=== PATIENT | male | born 1990 | race Caucasian/White ===

== ENCOUNTER 2016-09-20 22:14 | Emergency (ER) | payer SELFPAY ==
[~2016-09-20] VITALS: Ht 185.4 cm; Wt 56.7 kg
[2016-09-20 22:19] VITALS: BP 115/82; PULSE 96; RESP 18; TEMP 97.8; O2SAT 98
[2016-09-20] MEDS ORDERED: CEPH500C PO (22:34)
--- NOTE | 2016-09-20 22:41 | PD ---
HPI Chief Complaint: Injury Time Seen by Provider: 22:34 Travel History International Travel<30 days: No Contact w/Intl Traveler<30days: No Traveled to known affect area: No History of Present Illness HPI Patient is an 25-year-old otherwise healthy male presenting with crush injury to the left hand. Approximately 5 hours prior to exam the patient was attempting to put a trailer hitch onto a truck when he accidentally caught the metacarpals and MCP of the third through fifth digits between the hitch and the bumper of the truck. He has some minor lacerations as he calls them with minimal bleeding. He cleansed the wounds and applied "liquid bandage ". Pain is minimal. He denies any loss of range of motion, weakness or paresthesia. Denies any pain in the wrist. He is right-hand dominant. Last tetanus vaccine 3 years prior. Endorses tobacco use and occasional ethanol use. He states he drank 4 beers and 4 shots since this happened in an attempt to help with comfort. Denies illicit drug use. He is accompanied by his fiance today who will be driving him home. [facility] Past Medical History Asthma: Yes Diminished Hearing: No Musculoskeletal: Yes (CHRONIC BACK PAIN S/P FALL 2009) Respiratory: Yes (ASTHMA) Social History Alcohol Use: Yes (occasionally) Tobacco Use: Yes (1/2 ppd) Substance Use: Yes (THC) Allergies-Medications (Allergen,Severity, Reaction): Coded Allergies: No Known Allergies (Verified , 09/20/16) Reported Meds & Prescriptions Reported Meds & Active Scripts Active Diclofenac Sodium DR (Diclofenac Sodium) 50 Mg Tabdr 50 Mg PO BID Cephalexin 500 Mg Cap 500 Mg PO Q6H Review of Systems Except as stated in HPI: all other systems reviewed are Neg Physical Exam Narrative GENERAL: Well-developed and well-nourished adult male in no acute distress. SKIN: Warm and dry. Good turgor without tenting. Many tattoos. HEAD: Normocephalic and atraumatic. EYES: PERRL bilaterally, 5mm. EOMI bilaterally. No injection or icterus present. No proptosis. Lids without edema or erythema. CARDIOVASCULAR: Regular rate and rhythm without murmurs, rubs, clicks or gallops. Radial pulses 2+ bilaterally. Capillary refill less than 2 seconds at the tip of all fingers of left hand. RESPIRATORY: Clear to auscultation bilaterally with symmetrical rise and fall, no distress or use of accessory muscles. MUSCULOSKELETAL: Left hand has 3 small superficial lacerations on the radial aspect of the proximal digit, also centimeter. Hemostasis achieved. No bone or tendon is visible. Only the third digit would require repair as the others are less than 1 mm deep. Patient has full range of motion in the digits and wrist. Some pain with palpation of the distal third and fifth metacarpals and MCP joints. The pain to palpation of the digits themselves other than at the proximal phalanges of the third through fifth digits. No edema, discoloration or deformities. No gait disturbances. Patient freely moving all four extremities spontaneously. Extremities without clubbing, cyanosis, or edema. No obvious deformities. NEUROLOGIC: CN II-XII grossly intact. Awake and alert. Strength 5/5 bilateral wrist flexion, wrist extension. Sensation intact to light touch to the distal, radial and ulnar aspects of all fingers of the left hand. Normal speech. PSYCHIATRIC: Appropriate mood and affect; insight and judgment normal. Data Data Last Documented VS Vital Signs Date Time Temp Pulse Resp B/P Pulse Ox O2 Delivery O2 Flow Rate FiO2 09/20/16 22:19 97.8 96 18 115/82 98 Orders Hand, Complete ([id number]) (09/20/16 22:32) Ice/Cold Pack (09/20/16 22:32) Ketorolac Inj (Toradol Inj) (09/20/16 22:45) Ibuprofen (Motrin) (09/20/16 23:00) MDM Medical Decision Making Medical Screen Exam Complete: Yes Emergency Medical Condition: Yes Differential Diagnosis Finger/hand crush injury versus laceration versus fracture versus dislocation Narrative Course Patient is a 25-year-old otherwise healthy male presenting with crush injury to the left hand approximate 5 hours prior to exam. There are 3 subcentimeter lacerations are shallow, 2 are less than 1 mm deep and do not require repair on the third and fifth digits. Fourth digit is a little deeper and should be sutured. No bone or tendon is visible. Patient is neurovascularly intact has normal range of motion. He refuses sutures stating that under no circumstances does he want them to be closed. I offered multiple times and he insists that he does not any needles under any circumstances including suture needle. He is capable of making this decision and I explained that this can infection is higher and this could cause long-term consequences and he still desires to have it not sutured. I do believe that should be closed and some format and although sutures would be optimal and she will not let me it did apply Steri- Strips and Dermabond which he did allow me to apply Steri-Strips after wounds were cleansed. See attached procedure narrative. X-ray shows [-] Procedures Procedure Narrative LACERATION LOCATION: Base of the fourth digit exam LENGTH: 8 mm SHAPE: Linear NUMBER OF STITCHES/PAULINE: 2 Steri-Strips in 2 layers of Dermabond REPAIR: The area of the laceration was prepped with Betadine and sterilely draped. The wound was copiously irrigated and explored without evidence of foreign body, tendon injury or neurovascular injury. The wound was closed using Steri-Strip and Dermabond. This was a single layer repair. A sterile dressing was applied. The patient was advised to keep the dressing clean and dry. Patient tolerated the procedure well. Diagnosis Primary Impression: Finger laceration Qualified Code: S61.219A - Finger laceration, initial encounter Additional Impression: Crush injury Patient Instructions: Finger Laceration (ED), General Instructions Additional Instructions: Keep bandage on for 24 hours then change daily When changing bandage wash area with soap and water Avoid swimming or submerging wound in any water(bath, ordaz, pool, ocean, etc) Take Tylenol or ibuprofen for pain Do not take off the glue or Steri-Strips, they will fall off when ready Follow-up with PCP in 2-3 days Return to the ED for any acute worsening of symptoms including swelling, warmth , spreading redness, pustular drainage, fever Med/Other Pt SpecificInfo: Prescription(s) given Scripts Diclofenac Sodium DR 50 Mg Tabdr50 Mg PO BID #14 TAB Prov:Kenneth Coughlin MD 09/20/16 Cephalexin 500 Mg [id number] Mg PO Q6H #28 CAP Ref 0 Prov:Kenneth Coughlin MD 09/20/16 Disposition: 01 DISCHARGE HOME Condition: Stable GaryLuis Miguel HARDY Sep 20, 2016 22:40
[2016-09-20] MEDS ORDERED: KETOROLAC TROMETHAMINE 60 MG/2 ML (IM) VIAL IM ONE (22:45)
[2016-09-20] MEDS ORDERED: DICL50TA3 PO (22:55)
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
[2016-09-20] MEDS ORDERED: IBUPROFEN 800 MG TAB PO ONE (23:00)
== END 2016-09-20 23:54 | disposition home or self-care (01) ==
LOC: PHEFT 22:14
DX: S61.215A Laceration without foreign body of left ring finger without damage to nail, initial encounter (principal); J45.909 Unspecified asthma, uncomplicated; F17.210 Nicotine dependence, cigarettes, uncomplicated
CPT/HCPCS: 12001; 73130

== ENCOUNTER 2017-03-08 12:51 | Emergency (ER) | payer SELFPAY ==
[~2017-03-08] VITALS: Ht 185.4 cm; Wt 55.0 kg
[~2017-03-08 12:51] MED LIST: CEPH500C PO; DICL50TA3 PO
[2017-03-08 12:52] VITALS: BP 126/92; PULSE 103; RESP 15; TEMP 97.9; O2SAT 99
[2017-03-08] MEDS ORDERED: ROBA500T PO (13:21)
--- NOTE | 2017-03-08 13:22 | PD ---
HPI Chief Complaint: Back/ Neck Pain or Injury Time Seen by Provider: 13:00 Travel History International Travel<30 days: No Contact w/Intl Traveler<30days: No Traveled to known affect area: No History of Present Illness HPI 26-year-old male presents to emergency Department with chief complaint of low back pain. Symptom onset yesterday. 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 He reports the pain as "spasming", constant, nonradiating, worse with movement, relieved with rest, severity 6 out of 10. He reports similar symptoms with previous back strains. He denies fever, chills, incontinence, numbness/weakness/tingling or lower extremities. [facility] Past Medical History Narrative Medical Significant for asthma Asthma: Yes Diminished Hearing: No Musculoskeletal: Yes (Chronic back pain S/P fall ) Neurologic: Yes (TEMPORARY LEFT BODY PARALYSIS 2009) Respiratory: Yes (ASTHMA) Tetanus Vaccination: < 5 Years Influenza Vaccination: No ?: Not Social History Alcohol Use: No Tobacco Use: Yes (09/09 PPD) Substance Use: Yes (Marijuana occ.) Allergies-Medications (Allergen,Severity, Reaction): Coded Allergies: No Known Allergies (Verified , 03/08/17) Reported Meds & Prescriptions Reported Meds & Active Scripts Active Robaxin (Methocarbamol) 500 Mg Tab 500 Mg PO TID PRN Review of Systems General / Constitutional: No: Fever Eyes: No: Visual changes HENT: No: Headaches Cardiovascular: No: Chest Pain or Discomfort Respiratory: No: Shortness of Breath Gastrointestinal: No: Abdominal Pain Genitourinary: No: Dysuria Musculoskeletal: Positive: Other (back pain) Physical Exam Narrative GENERAL: Alert, well-appearing male no acute distress SKIN: Focused skin assessment warm/dry. HEAD: Atraumatic. Normocephalic. NECK: Trachea midline. No JVD. No cervical spine tenderness CARDIOVASCULAR: Regular rate and rhythm. No murmur appreciated. RESPIRATORY: No accessory muscle use. Clear to auscultation. Breath sounds equal bilaterally. GASTROINTESTINAL: Abdomen soft, non-tender, nondistended. Hepatic and splenic margins not palpable. MUSCULOSKELETAL: No obvious deformities. No clubbing. No cyanosis. No edema. Normal sensation in extremities. BACK: No CVA tenderness. Generalized point tenderness of the lumbar paraspinous muscles. No point tenderness within the spine. NEUROLOGICAL: Awake and alert. No obvious cranial nerve deficits. Motor grossly within normal limits. Normal speech. 5 out of 5 strength in extremities. Patient ambulating without difficulty. PSYCHIATRIC: Appropriate mood and affect; insight and judgment normal. Data Data Last Documented VS Vital Signs Date Time Temp Pulse Resp B/P Pulse Ox O2 Delivery O2 Flow Rate FiO2 03/08/17 12:52 97.9 103 15 126/92 99 MDM Medical Decision Making Medical Screen Exam Complete: Yes Emergency Medical Condition: Yes Differential Diagnosis Lumbar strain, herniated disc, very unlikely compression fracture Narrative Course 26-year-old male presents emergency department for low back pain times one day. Patient reports pain is similar to previous back pain. 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 On exam he's got mild to moderate tenderness in the lumbar paraspinous muscle regions. Patient will be treated for lumbar strain. Return precautions discussed. Patient agrees to plan Diagnosis Primary Impression: Lumbar strain Qualified Code: S39.012A - Lumbar strain, initial encounter Referrals: Primary Care Physician Departure Forms: Tests/Procedures, Work Release Enter return to work date: Mar 11, 2017 Additional Instructions: Take [id number]-dcheohg Motrin [id number] milligrams every 6 hours as needed for pain. Take the muscle relaxer as needed for muscle spasms. Apply heat and/or ice to the low back. Follow-up the primary care doctor. Return to emergency department if he developed new or worsening symptoms. Scripts Methocarbamol (Robaxin)500 Mg Fyn433 Mg PO TID PRN (MUSCLE SPASM) #12 TAB Prov:Blanca Viera 03/08/17 Disposition: 01 DISCHARGE HOME Condition: Stable Blanca Virea Mar 08, 2017 13:22
== END 2017-03-08 13:32 | disposition home or self-care (01) ==
LOC: PHEFT 12:51
DX: S39.012A Strain of muscle, fascia and tendon of lower back, initial encounter (principal); F17.210 Nicotine dependence, cigarettes, uncomplicated; X50.3XXA Overexertion from repetitive movements, initial encounter; Y93.H2 Activity, gardening and landscaping; Y92.89 Other specified places as the place of occurrence of the external cause; Y99.9 Unspecified external cause status
CPT/HCPCS: 99283

== ENCOUNTER 2017-06-20 21:20 | Emergency (ER) | payer SELFPAY ==
[~2017-06-20 21:20] MED LIST changes: -CEPH500C PO; -DICL50TA3 PO; +ROBA500T PO
[2017-06-20 21:23] VITALS: BP 108/64; PULSE 79; RESP 20; TEMP 98.5; O2SAT 100
[2017-06-20] MEDS ORDERED: CEPH-459 PO (22:43)
--- NOTE | 2017-06-20 22:44 | PD ---
HPI . Left hand laceration Chief Complaint: Laceration/Skin Injury Time Seen by Provider: 21:48 Travel History International Travel<30 days: No Contact w/Intl Traveler<30days: No Traveled to known affect area: No History of Present Illness HPI 26-year-old male presents to emergency room for evaluation of left hand laceration that he sustained earlier today while chopping vegetables. It is a 3 cm laceration noted to the left proximal aspect of the thumb. Patient is up- to-date on his tetanus. Patient denies any fevers, chills, malaise, paresthesias. Capillary refill is within normal limits. The left thumb is neurovascularly intact. Patient denies any major medical history. Patient is not allergic to anything. [facility] Past Medical History Asthma: Yes Diminished Hearing: No Musculoskeletal: Yes (Chronic back pain S/P fall ) Neurologic: Yes (TEMPORARY LEFT BODY PARALYSIS 2009) Respiratory: Yes (ASTHMA) Social History Alcohol Use: No Tobacco Use: Yes (/2 PPD) Substance Use: Yes (Marijuana occ.) Allergies-Medications (Allergen,Severity, Reaction): Coded Allergies: No Known Allergies (Verified , 06/20/17) Reported Meds & Prescriptions Reported Meds & Active Scripts Active Keflex (Cephalexin) 250 Mg Cap 250 Mg PO Q6H 5 Days Review of Systems Except as stated in HPI: all other systems reviewed are Neg Physical Exam Narrative GENERAL: Well-nourished, well-developed 26-year-old male patient in no acute distress. SKIN: 3 cm laceration to the lateral aspect of the left thumb in the proximal region. HEAD: Normocephalic. Atraumatic EYES: No scleral icterus. No injection or drainage. NECK: Supple, trachea midline. No JVD or lymphadenopathy. CARDIOVASCULAR: Regular rate and rhythm without murmurs, gallops, or rubs. RESPIRATORY: Breath sounds equal bilaterally. No accessory muscle use. GASTROINTESTINAL: Abdomen soft, non-tender, nondistended. MUSCULOSKELETAL: No cyanosis, or edema. BACK: Nontender without obvious deformity. No CVA tenderness. Data Data Last Documented VS Vital Signs Date Time Temp Pulse Resp B/P (MAP) Pulse Ox O2 Delivery O2 Flow Rate FiO2 06/20/17 21:23 98.5 79 20 108/64 (79) 100 MDM Medical Decision Making Medical Screen Exam Complete: Yes Emergency Medical Condition: Yes Differential Diagnosis Difficult diagnoses include but not limited to laceration, cellulitis, foreign body, nerve damage, tendon damage Narrative Course 26-year-old male patient presents emergency department for evaluation of laceration he sustained to the left thumb. The laceration is on the lateral proximal aspect of the thumb. Patient able to move thumb appropriately. Capillary refill is within normal limits. The left thumb is neurovascularly intact. She denies any paresthesias. Patient denies any fevers, chills, malaise. The laceration was sustained earlier this evening. Patient stated he would not of come in to the emergency department however he needs a work note for tomorrow. Patient refuses to get sutures. Patient states we can close it with a Band-Aid or we can glue it but he will not get sutures. He is up-to- date on his tetanus shot. Patient will soak his left hand and half normal saline and half Betadine solution to ensure a thorough clean. The laceration will be repaired using Dermabond. The patient will be put on prophylactic antibiotics due to the hands being high risk area. Patient will be discharged home with Keflex. Diagnosis Primary Impression: Finger laceration Qualified Codes: S61.012A - Laceration without foreign body of left thumb without damage to nail, initial encounter Patient Instructions: Finger Laceration (ED), General Instructions Departure Forms: Tests/Procedures, Work Release Enter return to work date: Jun 25, 2017 Additional Instructions: Please return to emergency department if your symptoms return or worsen. Follow up with your primary care provider. Take medications as prescribed. Keep the wound clean and dry. Med/Other Pt SpecificInfo: Prescription(s) given Scripts Cephalexin (Keflex) 250 Mg Cap 250 MG PO Q6H for Infection for 5 Days, #20 CAP 0 Refills Prov: LissethMarquitaad TRACEY 06/20/17 Disposition: 01 DISCHARGE HOME Condition: Stable Lisseth,Marquita TRACEY Jun 20, 2017 22:44
== END 2017-06-20 23:10 | disposition home or self-care (01) ==
LOC: PHED 21:20 → PHEFT 23:10
DX: S61.012A Laceration without foreign body of left thumb without damage to nail, initial encounter (principal); W26.0XXA Contact with knife, initial encounter; Y93.G3 Activity, cooking and baking; J45.909 Unspecified asthma, uncomplicated; G89.29 Other chronic pain; Z72.0 Tobacco use
CPT/HCPCS: 12002

== ENCOUNTER 2017-06-24 21:04 | Emergency (ER) | payer SELFPAY ==
[~2017-06-24] VITALS: Ht 188 cm; Wt 55.4 kg
[~2017-06-24 21:04] MED LIST changes: +CEPH-459 PO; -ROBA500T PO
[2017-06-24 21:09] VITALS: BP 116/74; PULSE 72; RESP 16; TEMP 97.2; O2SAT 98
--- NOTE | 2017-06-24 21:23 | PD ---
HPI Chief Complaint: wound recheck Time Seen by Provider: 21:17 Travel History International Travel<30 days: No Contact w/Intl Traveler<30days: No History of Present Illness HPI Patient comes back to the emergency department complaining of recheck of left thumb. Patient reports his employer will not let him go back to work secondary to the laceration still not being completely healed without any doctor's note. Patient states taking antibiotics as prescribed. He states the Dermabond came off. Patient reports been keeping it dry and clean as possible using soap and water. Denies any new complaints. Denies anything making it better or worse. Denies any pain with this. 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 PFSH Past Medical History Asthma: Yes Diminished Hearing: No Musculoskeletal: Yes (Chronic back pain S/P fall ) Neurologic: Yes (TEMPORARY LEFT BODY PARALYSIS 2009) Respiratory: Yes (ASTHMA) Social History Alcohol Use: No Tobacco Use: Yes (1/2 PPD) Substance Use: Yes (Marijuana occ.) Allergies-Medications (Allergen,Severity, Reaction): Coded Allergies: No Known Allergies (Verified , 06/24/17) Reported Meds & Prescriptions Reported Meds & Active Scripts Active Keflex (Cephalexin) 250 Mg Cap 250 Mg PO Q6H 5 Days Review of Systems Except as stated in HPI: all other systems reviewed are Neg Physical Exam Narrative GENERAL: Well-developed, well nourished, in no acute distress, and non-ill appearing. SKIN: Well-healing wound noted over the left thumb. There is no crepitus, erythematous, drainage, or other signs of infection. Patient has full range of motion with flexion, extension, abduction, adduction, opposition of the thumb. Is neurovascularly intact distally. HEAD: Atraumatic. Normocephalic. EYES: Pupils equal and round. EOMI. No scleral icterus. No injection or drainage. ENT: No nasal bleeding or discharge. Mucous membranes pink and moist. NECK: Trachea midline. Supple. No nuclear rigidity. CARDIOVASCULAR: Capillary refill less than 2 seconds. RESPIRATORY: No accessory muscle use. No respiratory distress. MUSCULOSKELETAL: No obvious deformities. No clubbing. No cyanosis. No edema. Full range of motion. NEUROLOGICAL: Awake and alert. No obvious cranial nerve deficits. Motor grossly within normal limits. Normal speech. PSYCHIATRIC: Appropriate mood and affect; insight and judgment normal. Data Data Last Documented VS Vital Signs Date Time Temp Pulse Resp B/P (MAP) Pulse Ox O2 Delivery O2 Flow Rate FiO2 06/24/17 21:32 06/24/17 21:09 97.2 72 16 98 Orders Orders Ed Discharge Order (06/24/17 21:23) MDM Medical Decision Making Medical Screen Exam Complete: Yes Emergency Medical Condition: No Differential Diagnosis Wound infection, wound recheck, other Narrative Course Patient in no obvious distress upon re-evaluation. Patient was instructed to follow up with primary care physician and/or hand surgeon this week for reevaluation. Keep wound dry and clean as possible using soap and water. Use Neosporin to promote healing. Do not soak or submerge wound. Any questions/ concerns in reference to patient diagnosis/condition discussed and clarified prior to patient's discharge. Instructed patient to return to ED immediately, if symptoms return/worsen. Patient showed understanding of above instructions. Further instructions and recommendations were detailed in discharge paperwork. Patient ambulated without difficulty out of ED at discharge. Diagnosis Primary Impression: Encounter for wound re-check Referrals: [facility] Patient Instructions: Acute Wounds (ED), Finger Laceration (ED) Departure Forms: Work Release Enter return to work date: Jun 26, 2017 Special Instructions: Do not soak or submerge wound. 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 Additional Instructions: Follow-up with your primary care physician and/or hand surgeon this week for reevaluation. Keep wound dry and clean as possible using soap and water. Use Neosporin to promote healing. Do not soak or submerge wound. Return to the emergency department if symptoms get worse. Disposition: 01 DISCHARGE HOME Condition: Stable Edil Kline Jun 24, 2017 21:23
== END 2017-06-24 21:35 | disposition home or self-care (01) ==
LOC: PHEFT 21:04
DX: Z48.00 Encounter for change or removal of nonsurgical wound dressing (principal); J45.909 Unspecified asthma, uncomplicated; F17.200 Nicotine dependence, unspecified, uncomplicated
CPT/HCPCS: 99281

== ENCOUNTER 2017-08-16 23:26 | Emergency (ER) | payer SELFPAY ==
[~2017-08-16] VITALS: Ht 188 cm; Wt 57.0 kg
[2017-08-16 23:30] VITALS: BP 121/75; PULSE 64; RESP 22; TEMP 97.7; O2SAT 100
--- NOTE | 2017-08-17 00:37 | PD ---
HPI Chief Complaint: ENT Complaint Time Seen by Provider: 00:34 Travel History International Travel<30 days: No Contact w/Intl Traveler<30days: No Traveled to known affect area: No History of Present Illness HPI The patient is a 26-year-old male that complains of a sore throat and cough productive of green sputum for 3 days. He has not had any fever. He works with food. He has not short of breath. He can feel occasional wheezes when he breathes deeply. He smokes one half pack a day. His sons have asthma and he has been using their nebulizer treatments with some relief at home. [facility] Past Medical History Asthma: Yes Diminished Hearing: No Musculoskeletal: Yes (Chronic back pain S/P fall ) Neurologic: Yes (TEMPORARY LEFT BODY PARALYSIS 2009) Respiratory: Yes (ASTHMA) ?: Not Social History Alcohol Use: No Tobacco Use: Yes (09/09 PPD) Substance Use: Yes (Marijuana occ.) Allergies-Medications (Allergen,Severity, Reaction): Coded Allergies: No Known Allergies (Verified , 06/24/17) Reported Meds & Prescriptions Reported Meds & Active Scripts Active Keflex (Cephalexin) 250 Mg Cap 250 Mg PO Q6H 5 Days Review of Systems Except as stated in HPI: all other systems reviewed are Neg Physical Exam Narrative GENERAL: The patient is alert, oriented 3 in no respiratory distress. His vital signs show respirations of 22 but otherwise normal. When I see the patient is respirations are 18. SKIN: Focused skin assessment warm/dry. No skin rash is seen. HEAD: Atraumatic. Normocephalic. EYES: Pupils equal and round. No scleral icterus. No injection or drainage. ENT: No nasal bleeding or discharge. Mucous membranes pink and moist. The throat is slightly red without exudate or abscess. NECK: Trachea midline. No JVD. CARDIOVASCULAR: Regular rate and rhythm. No murmur appreciated. RESPIRATORY: No accessory muscle use. Bilateral wheezes with a few rhonchi are heard. Breath sounds equal bilaterally. GASTROINTESTINAL: Abdomen soft, non-tender, nondistended. Hepatic and splenic margins not palpable. MUSCULOSKELETAL: No obvious deformities. No clubbing. No cyanosis. No edema. NEUROLOGICAL: Awake and alert. No obvious cranial nerve deficits. Motor grossly within normal limits. Normal speech. PSYCHIATRIC: Appropriate mood and affect; insight and judgment normal. Data Data Last Documented VS Vital Signs Date Time Temp Pulse Resp B/P (MAP) Pulse Ox O2 Delivery O2 Flow Rate FiO2 08/16/17 23:40 18 08/16/17 23:30 97.7 64 121/75 (90) 100 Orders Orders Group A Rapid Strep Screen (08/17/17 00:06) Influenzae A/B Antigen (08/17/17 00:06) Chest, Pa & Lat (08/17/17 00:34) Strep Culture (Group A) (08/17/17 00:20) Albuterol-Ipratropium Neb (Duoneb Neb) (08/17/17 00:45) MDM Medical Decision Making Medical Screen Exam Complete: Yes Emergency Medical Condition: Yes Medical Record Reviewed: Yes Interpretation(s) The strep screen is negative for group A strep antigen. The influenza A/B antigen is negative for flu a and flu B antigen. Differential Diagnosis Bronchitis-viral, bronchitis-bacterial, pneumonia, bronchopneumonia Narrative Course The patient got only questionable relief with the DuoNeb treatments. He got the same relief with the DuoNeb said he got with his children's nebulizer at home. The chest x-ray is normal and this may be viral versus bacterial bronchitis. The patient is a smoker and may benefit with Zithromax. Diagnosis Primary Impression: Bronchitis Additional Instructions: The antibiotic is one tablet daily for 5 days. It stays your system and lasts for several weeks. Follow-up with your primary care physician and, as we discussed, quit smoking. Med/Other Pt SpecificInfo: Prescription(s) given Scripts Azithromycin (Zithromax) 500 Mg Tab 500 MG PO DAILY for Infection for 5 Days, #5 TAB 0 Refills Prov: Alonzo Rebolledo MD 08/17/17 Disposition: 01 DISCHARGE HOME Condition: Stable Alonzo Rebolledo MD Aug 17, 2017 00:37
[2017-08-17] MEDS: RESP: ALBUTEROL 2.5 MG/IPRATROPIUM 0.5 MG NEB (SCH) INH (00:54)
--- NOTE | 2017-08-17 00:55 | RADRPT ---
EXAM DATE/TIME: 08/17/2017 00:47 [place] COMPARISON: No previous studies available for comparison. INDICATIONS : Wheezing. MEDICAL HISTORY : Asthma SURGICAL HISTORY : None. ENCOUNTER: Initial ACUITY: 4 - 6 days PAIN SCORE: 0/10 LOCATION: Bilateral chest FINDINGS: PA and lateral views of the chest demonstrate the lungs to be symmetrically aerated without evidence of mass, infiltrate or effusion. The cardiomediastinal contours are unremarkable. Osseous structure s are intact. CONCLUSION: Hyperinflation. Clear lungs. Primitivo Blanton MD on August 17, 2017 at 0:53 Board Certified Radiologist. This report was verified electronically.
[2017-08-17] MEDS ORDERED: ZITH500T PO (01:29)
[2017-08-17] MEDS ORDERED: AZITHROMYCIN 250 MG TAB PO ONE (01:30)
[2017-08-17 01:49] VITALS: BP 154/74
== END 2017-08-17 01:51 | disposition home or self-care (01) ==
LOC: PHED 23:26
DX: J40 Bronchitis, not specified as acute or chronic (principal); R07.0 Pain in throat; F17.200 Nicotine dependence, unspecified, uncomplicated; Z87.09 Personal history of other diseases of the respiratory system; Z87.39 Personal history of other diseases of the musculoskeletal system and connective tissue
CPT/HCPCS: 71020; 87081; 87804; 87880; 94640; 94664; 99284

== ENCOUNTER 2017-12-24 13:01 | Emergency (ER) | payer SELFPAY ==
[~2017-12-24] VITALS: Ht 185.4 cm; Wt 60.1 kg
[~2017-12-24 13:01] MED LIST changes: +ZITH500T PO
[2017-12-24 13:02] VITALS: BP 126/75; PULSE 84; RESP 18; TEMP 97.7; O2SAT 99
[2017-12-24] MEDS ORDERED: MAGICPED SWISH-SPIT (13:14)
[2017-12-24] MEDS ORDERED: PENI500T PO (13:14)
--- NOTE | 2017-12-24 13:17 | PD ---
HPI Chief Complaint: Oral / Dental Pain or Problem Time Seen by Provider: 13:08 Travel History International Travel<30 days: No Contact w/Intl Traveler<30days: No Traveled to known affect area: No History of Present Illness HPI 27-year-old male presents emergency department for evaluation of right upper and lower molar pain that started last night. Patient states that he started having pain yesterday and try to take 800 mg ibuprofen and use warm compresses however, the pain relief did not last a significant amount of time. Denies any inciting events. patient says that he has been trying to get in with the dentist however, he has been unable to secondary financial strain. Says pain is moderate in severity, nonradiating. Denies fevers or chills. Denies chronic medical issues medication use. Patient is concerned about an infection and his pain so decided to come in today for evaluation. PFSH Past Medical History Asthma: Yes Diminished Hearing: No Musculoskeletal: Yes (Chronic back pain S/P fall ) Neurologic: Yes (TEMPORARY LEFT BODY PARALYSIS 2009) Respiratory: Yes (ASTHMA) Influenza Vaccination: Yes ?: Not Social History Alcohol Use: No Tobacco Use: Yes (/2 PPD) Substance Use: Yes (Marijuana occ.) Allergies-Medications (Allergen,Severity, Reaction): Coded Allergies: No Known Allergies (Verified Adverse Reaction, Unknown, 12/24/17) Reported Meds & Prescriptions Reported Meds & Active Scripts Active Magic Mouthwash Pediatric/Adult Liq (Lidocaine/Diphenhydr/Alum/Mg/Simeth) 60 Ml Susp 5 Ml SWISH-SPIT ACHS Each 5mL contains: Diphenydramine 4.5mg, Viscous Lidocaine 2% 10mg, Maalox Advanced Regular Strength 2.7ml Penicillin V Potassium 500 Mg Tab 500 Mg PO Q8H 10 Days Review of Systems Except as stated in HPI: all other systems reviewed are Neg Physical Exam Narrative GENERAL: Well-nourished, well-developed patient. SKIN: Focused skin assessment warm/dry. HEAD: Normocephalic. Mild tenderness palpation to the right upper and lower jaw. No trismus. Full range of motion of jaw. Dental inversions and caries present. Of note, right upper molar and left lower molar completely eroded into the gingiva and gumline. No fluctuance. Mild tenderness palpation of the gingiva. EYES: No scleral icterus. No injection or drainage. NECK: Supple, trachea midline. No JVD or lymphadenopathy. CARDIOVASCULAR: Regular rate and rhythm without murmurs, gallops, or rubs. RESPIRATORY: Breath sounds equal bilaterally. No accessory muscle use. GASTROINTESTINAL: Abdomen soft, non-tender, nondistended. MUSCULOSKELETAL: No cyanosis, or edema. BACK: Nontender without obvious deformity. No CVA tenderness. Data Data Last Documented VS Vital Signs Date Time Temp Pulse Resp B/P (MAP) Pulse Ox O2 Delivery O2 Flow Rate FiO2 12/24/17 13:02 97.7 84 18 126/75 (92) 99 Orders Orders Ed Discharge Order (12/24/17 13:17) MDM Medical Decision Making Medical Screen Exam Complete: Yes Emergency Medical Condition: Yes Differential Diagnosis Pulpitis, dental infection, dental erosion, tooth abscess Narrative Course 27-year-old male presents emergency department for evaluation of tooth pain that started yesterday. Patient states that the pain woke him up because of the severity. Patient has used warm compresses ibuprofen 800 mg with minimal relief. He denies any fevers or chills. Patient does plan on going to a dentist however, because of financial strain he has been unable to go. Vital signs are stable. The exam findings consistent with poor dentition and ulceration of the right upper molar. There is no fluctuance of the gingiva. No exudate. Patient will receive penicillin V K and Magic mouthwash. He is advised to follow-up with the dentist as soon as possible for evaluation and treatment. He states understanding will comply. Diagnosis Primary Impression: Dental erosion Additional Impression: Dental infection Referrals: Dentist Primary Care Physician Additional Instructions: Take medications as prescribed. You may continue ibuprofen 800 mg 3 times a day per package instructions. Recommend following up with a dentist as soon as possible to avoid complications. Scripts Gycbfuunnlgmwxz-Zswbabxnm-Haz-Alum-Simeth Liq (Magic Mouthwash Pediatric/Adult Liq) 60 Ml Susp 5 ML SWISH-SPIT ACHS for Mouth sores, #60 ML 0 Refills Each 5mL contains: Diphenydramine 4.5mg, Viscous Lidocaine 2% 10mg, Maalox Advanced Regular Strength 2.7ml Prov: Kenneth Coughlin MD 12/24/17 Penicillin V Potassium (Penicillin V Potassium) 500 Mg Tab 500 MG PO Q8H for Infection for 10 Days, #30 TAB 0 Refills Prov: Kenneth Coughlin MD 12/24/17 Disposition: 01 DISCHARGE HOME Condition: Stable Agnes Armendariz Dec 24, 2017 13:17
== END 2017-12-24 13:23 | disposition home or self-care (01) ==
LOC: PHEFT 13:01
DX: K03.2 Erosion of teeth (principal); K04.7 Periapical abscess without sinus; J45.909 Unspecified asthma, uncomplicated; F12.90 Cannabis use, unspecified, uncomplicated; F17.200 Nicotine dependence, unspecified, uncomplicated
CPT/HCPCS: 99283